=== PATIENT | female | born 1995 ===

== ENCOUNTER 2017-09-13 09:21 | Emergency (ER) | payer OTHER ==
[~2017-09-13] VITALS: Ht 167.6 cm; Wt 140.0 kg
[2017-09-13 09:25] VITALS: BP_SYST 137; BP_DIAS 39; BP_DIAS 79; PULSE 82; RESP 16; TEMP 98; O2SAT 98
[2017-09-13] MEDS ORDERED: IBUPROFEN 800 MG TAB PO ONE (09:45)
--- NOTE | 2017-09-13 09:59 | PD ---
HPI Chief Complaint: Injury Time Seen by Provider: 09:43 Travel History International Travel<30 days: No Contact w/Intl Traveler<30days: No Traveled to known affect area: No History of Present Illness HPI 22-year-old female, [email or web address] employee, presents to the emergency department with complaint of left hand pain and swelling at the fourth and fifth metacarpal area after slamming her hand in a door today while at work. Denies paresthesias , loss of sensation, decreased range of motion of the fingers to the affected extremity. Denies wrist pain. Has not taken any medication or trying treatments to alleviate her pain. Rates pain 5/10. Worse with movement. Better at rest. No known allergies. Denies significant past medical history. No primary care provider. Has no other medical complaints. No other modifying factors or associated signs and symptoms. PFSH Past Medical History ?: Not Social History Tobacco Use: No Allergies-Medications (Allergen,Severity, Reaction): Coded Allergies: No Known Allergies (Unverified , 09/13/17) Reported Meds & Prescriptions Reported Meds & Active Scripts Active Ibuprofen 800 Mg Tab 800 Mg PO Q6HR PRN Tramadol (Tramadol HCl) 50 Mg Tab 50 Mg PO Q4H PRN Review of Systems Except as stated in HPI: all other systems reviewed are Neg Physical Exam Narrative GENERAL: Well-nourished, well-developed patient, in no acute distress SKIN: Warm and dry. HEAD: Atraumatic. Normocephalic. EYES: Pupils equal and round. No scleral icterus. No injection or drainage. ENT: Mucosa pink and moist. Airway patent. NECK: Trachea midline. CARDIOVASCULAR: Regular rate. RESPIRATORY: No accessory muscle use. GASTROINTESTINAL: Obese. MUSCULOSKELETAL: Left hand at the fourth and fifth metacarpal region with edema and mild ecchymosis; with tenderness on palpation; fingers with full flexion and extension; fingers are pink and warm and was sensory intact. Left approximately is supple and non-tense with 2+ radial pulse and sensory intact and without erythema or edema. No obvious deformities. No clubbing. No cyanosis. No edema. NEUROLOGICAL: Awake and alert. Oriented 3. No obvious cranial nerve deficits. Motor grossly within normal limits. Normal speech. PSYCHIATRIC: Appropriate mood and affect; insight and judgment normal. Data Data Last Documented VS Vital Signs Date Time Temp Pulse Resp B/P (MAP) Pulse Ox O2 Delivery O2 Flow Rate FiO2 09/13/17 09:25 98.0 82 16 137/79 (98) 98 Orders Orders Hand, Complete (Dio1emx) (09/13/17 09:45) Ice/Cold Pack (09/13/17 09:45) Ibuprofen (Motrin) (09/13/17 09:45) Splint Or Brace Apply/Monitor (09/13/17 10:19) Sling Cradle Arm (09/13/17 ) Ed Discharge Order (09/13/17 10:19) MDM Medical Decision Making Medical Screen Exam Complete: Yes Emergency Medical Condition: Yes Medical Record Reviewed: Yes Differential Diagnosis Contusion, fracture, sprain Narrative Course 22-year-old female, [email or web address] employee, with work-related injury to the left hand. Ibuprofen and left hand x-ray ordered. 1020: Left hand x-ray concluded: Hand X-Ray 09/13/17 0945 Signed Impressions: CONCLUSION: Nondisplaced fracture midshaft fifth metacarpal Discussed x-ray findings with the patient. Ulnar gutter splint and arm sling ordered. Instructed patient to follow-up with hand surgeon within 1 week. Instructed patient to contact human resources for work-related injury. Tramadol and ibuprofen prescribed for home. Instructed patient to follow up with primary care provider. Patient verbalizes understanding and agreement with treatment plan. Patient is medically cleared and stable for discharge. Discussed reasons to return to the emergency department. Patient agrees with treatment plan. The patients vital signs are stable and the patient is stable for outpatient follow-up and treatment. Patient discharged home, stable and in no acute distress. Diagnosis Primary Impression: Fracture of metacarpal of left hand, closed Qualified Codes: S62.357A - Nondisplaced fracture of shaft of fifth metacarpal bone, left hand, initial encounter for closed fracture Referrals: [facility]) Human Resources Hand Surgeon Primary Care Physician Patient Instructions: General Instructions, Hand Fracture (ED) Additional Instructions: Tylenol or ibuprofen as directed and as needed to reduce pain Rest, ice, compress, and elevate extremity to decrease pain and inflammation Splint for support; do not remove splint until cleared by hand surgeon Avoid aggravating activity; increase activity as tolerated Follow-up with primary care provider Follow-up with hand surgeon within 1 week Return to the emergency department immediately with worsening symptoms Med/Other Pt SpecificInfo: Prescription(s) given Scripts Ibuprofen (Ibuprofen) 800 Mg Tab 800 MG PO Q6HR Y for PAIN, #30 TAB 0 Refills Prov: Zari Bethea 09/13/17 Tramadol (Tramadol) 50 Mg Tab 50 MG PO Q4H Y for PAIN, #15 TAB 0 Refills Prov: Zari Bethea 09/13/17 Disposition: 01 DISCHARGE HOME Condition: Stable Zari Bethea Sep 13, 2017 09:59
--- NOTE | 2017-09-13 10:00 | RADRPT ---
EXAM DATE: 09/13/2017 9:57 AM EDT AGE/SEX: 22 years / Female INDICATIONS: Left 5th metacarpal pain after slamming hand in door. CLINICAL DATA: This is the patient's initial encounter. Patient reports that signs and symptoms have been present for 1 day and indicates a pain score of 8/10. MEDICAL/SURGICAL HISTORY: None. None. COMPARISON: No prior exams available for comparison. FINDINGS: Nondisplaced spiral fracture midshaft fifth metacarpal in reasonable alignment. No other fractures ar e appreciated. CONCLUSION: Nondisplaced fracture midshaft fifth metacarpal Electronically signed by: Gerardo Grimes MD 09/13/2017 9:58 AM EDT
[2017-09-13] MEDS ORDERED: TRAM50TA PO (10:22)
[2017-09-13] MEDS ORDERED: IBUP1TAB7 PO (10:22)
== END 2017-09-13 11:28 | disposition home or self-care (01) ==
LOC: NEPK 09:21
DX: S62.357A Nondisplaced fracture of shaft of fifth metacarpal bone, left hand, initial encounter for closed fracture (principal); W23.0XXA Caught, crushed, jammed, or pinched between moving objects, initial encounter; Y99.0 Civilian activity done for income or pay
CPT/HCPCS: 29125; 73130